=== PATIENT | male | born 1975 | race African-American/Black ===

== ENCOUNTER 2023-01-19 09:19 | Emergency (ER) | payer SELFPAY ==
[2023-01-19] MEDS ORDERED: HYDROcodone/Acetaminophen 10/325 mg Tablet ONE (10:28)
[2023-01-19] MEDS ORDERED: Ketorolac Tromethamine 30 MG/ML VIAL ONE (10:28)
== END 2023-01-19 11:25 | disposition home or self-care (01) ==
LOC: ERS 09:19
DX: S70.01XA Contusion of right hip, initial encounter (principal); F17.210 Nicotine dependence, cigarettes, uncomplicated; W20.8XXA Other cause of strike by thrown, projected or falling object, initial encounter
CPT/HCPCS: 74176; 96372; J1885